=== PATIENT | female | born 1965 | race Caucasian/White ===

== ENCOUNTER 2018-11-14 11:40 | Emergency (ER) | payer BC ==
--- OUTSIDE RECORDS SUMMARY | 2018-11-14 12:13 | XMS REPORT ---
:1965 Author Organization [facility] Address [address] [place] [address] Care Team Providers Name Role Phone Joceline Batista Unavailable Unavailable PROBLEMS Type Condition ICD9-CM OSJ11-[id number] Onset Condition SNOMED Code Code Code Dates Status Problem Postmenopausal N95.0 Active 44930281 bleeding Problem Body mass index Z68.36 Active 835109058035085 (BMI) 36.0-36.9, adult ALLERGIES Substance Reaction Event Type Date Status ragweed pollen allergen extract Unknown Drug Allergy Oct, Active Dust Unknown Drug Allergy Oct, Active ENCOUNTERS Encounter Location Date Diagnosis [address] Nov[facility] [address] [place] [id number] [facility] Oct, Encounter for other OBGYN [facility], specified surgical [place] [id number] aftercare Z48.[address] 13 Oct, 2018 Postmenopausal bleeding [facility] [address] [place] [address], N95.0 ; Body mass index [place] 48[address] (BMI) 36.0-36.9, adult Z68.36 and Hematuria, unspecified R31.9 [facility] 103 Sep, Hypokalemia E87.6 [place] [id number] [facility] 103 Sep, OBGYN [place] [id number] [facility] [address], Sep, Postmenopausal bleeding [facility] [place] [id number] N95.0 and Body mass index (BMI) 36.0-36.9, adult Z68.36 [facility] 103 Sep, Postmenopausal bleeding OBGYN [facility], N95.0 and Body mass index [place] [address] (BMI) 36.0-36.9, adult Z68.36 [facility] [address], Sep, Postmenopausal bleeding [facility] [place] [id number] N95.0 and Body mass index (BMI) 36.0-36.9, adult Z68.36 [facility] 103 Aug, Postmenopausal bleeding OBGYN [facility], N95.0 and Body mass index [place] [address] (BMI) 36.0-36.9, adult Z68.36 [facility] 103 Aug, OBGYN [place] [id number] [facility] 103 Aug, OBGYN [place] [id number] [facility] 103 Aug, [place] [id number] [facility] 103 Aug, OBGYN [place] [id number] [facility] 103 Aug, Postmenopausal bleeding OBGYN [facility], N95.0 and Body mass index [place] [address] (BMI) 36.0-36.9, adult Z68.36 [facility] [address] [place] [address] Jul, Postmenopausal bleeding OBGYN [address] [place], N95.0 [place] [id number] [facility] 103 Jul, Postmenopausal bleeding OBGYN [facility] N95.0 [place] [id number] [facility] 103 Jul, Postmenopausal bleeding OBGYN [facility]95.0 [place] [id number] [address] Jul, Postmenopausal bleeding OBGYN [address] [place], N95.0 and Body mass index [place] [address] (BMI) 36.0-36.9, adult Z68.36 IMMUNIZATIONS No Known Immunizations SOCIAL HISTORY Never Assessed REASON FOR REFERRAL FUNCTIONAL STATUS PLAN OF CARE Activity Details Follow Up As scheduled Reason: VITAL SIGNS Height 68 in 2018-10-20 Weight 235 lbs 2018-10-20 BMI 35.73 kg/m2 2018-10-20 Blood pressure systolic 126 mm Hg 2018-10-20 Blood pressure diastolic 78 mm Hg 2018-10-20 MEDICATIONS Unknown Medications PROCEDURES No Known procedures RESULTS No Results REASON FOR VISIT "Piece" came out of vagina after hysterectomy- pt concerned , pain in back of legs and side of neck, father of stroke recently Insurance Providers [facility] Health Member Patient Patient Patient Patient Patient Subscriber Subscriber Subscriber Group Insurance Plan Plan Plan Plan ID Relationship Address Phone Name Date of ID Name Date of No Type Insurance Insurance Insurance Coverage to Subscriber Address Phone Name Dates [employer] [phone] [employer] self Joceline [id number] Blue [id number] 89 Blue Balaji 0 Cross/Blue [place] Cross/Blue Shield [id number] Shield MEDICAL (GENERAL) HISTORY Type Description Date Medical History Hypothyroidsm Medical History Obstructive sleep apnea Medical History Diverticulosis of sigmoid colon Medical History HTN Medical History Hyperlipidemia Surgical History Surgical History hysteroscopy, D&C, excision of EM mass 09/07/18 Surgical History TLH/BS/cysto 09/28/18 Hospitalization History .
--- NOTE | 2018-11-14 12:27 | ED ---
Back Pain - HPI Summary HPI Summary: A 53 y/o female presents to the ED c/o back pain reaching 6/10 in severity. In the ED room, the patient has a pulse of 86 BPM, O2 saturation of 98%, and blood pressure of 178/91. As per triage, "pt states back pain since a partial hysterectomy, states recently developed some heartburn, and then Thursday behind the right shoulder blade pain that was severe. pt also states that feels like whole body is burning, torso feels burning. pt denies gas feeling, recent weight loss, feet hurt and hurts to sit". According to the patient, her back pain (in shoulder blades) started back in July but it was not severe enough to follow up. This pain was coupled with post-menopausal bleeding and she saw her OB. She also had acid-reflux symptoms, so her MD prescribed her some medication. She noted that after her hysterectomy, she felt "pain in my organs" and also felt like she has a hernia. She comes to the ED today because she experienced severe back pain (beneath right shoulder) on Thursday, but subsided, however, she experiences mild back pain now with some tenderness. 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 She also looked at her tongue last night and noticed her tongue was white. Yogurt alleviates her pain, however, ETOH and apples aggravate the sharp back pain. - History of Current Complaint Chief Complaint: EDGeneral Stated Complaint: BACK PAIN Time Seen by Provider: 11/14/18 11:50 Hx Obtained From: Patient Onset/Duration: Sudden Onset, Lasting Days, Still Present Onset/Duration: Started Days Ago, Still Present Timing: Constant Back Pain Location: Is Discrete @ - RIGHT SHOULDER BLADE Severity Initially: Moderate Severity Currently: Moderate Pain Intensity: 6 Pain Scale Used: 0-10 Numeric Character: Sharp Aggravating Symptom(s): Other - ETOH AND APPLES Alleviating Symptom(s): Other - YOGURT Associated Signs And Symptoms: Positive: Negative - Allergies/Home Medications Allergies/Adverse Reactions: Allergies Allergy/AdvReac Type Severity Reaction Status Date / Time No Known Allergies Allergy Verified 11/14/18 11:48 Home Medications: Home Medications Atorvastatin* [Lipitor*] 40 mg PO 1700 11/14/18 [History Confirmed 11/14/18] Citalopram Hydrobromide [Citalopram HBr] 20 mg PO DAILY 11/14/18 [History Confirmed 11/14/18] Levothyroxine TAB* [Synthroid TAB*] 50 mcg PO DAILY 11/14/18 [History Confirmed 11/14/18] Omeprazole 40 mg PO DAILY 11/14/18 [History Confirmed 11/14/18] Triamcinolone 0.1% Cr 15gm -NF [Triamcinolone Acetonide] 1 applic TOPICAL BID [History Confirmed 11/14/18] PMH/Surg Hx/FS Hx/Imm Hx Endocrine/Hematology History: Denies: Hx Diabetes Cardiovascular History: Reports: Hx Hypertension Respiratory History: Denies: Hx Asthma - Surgical History Surgery Procedure, Year, and Place: HYSTERECTOMY Infectious Disease History: No Infectious Disease History: Denies: Traveled Outside the [place] in Last 30 Days - Family History Known Family History: Positive: Diabetes - TYPE II - Social History Alcohol Use: None Substance Use Type: Reports: None Smoking Status (MU): Never Smoked Tobacco Review of Systems Positive: Other - POSITIVE: FELT WARM ON TORSO. Negative: Fever ENT: Other - POSITIVE: WHITE TONGUE Positive: Other - POSITIVE: BACK PAIN All Other Systems Reviewed And Are Negative: Yes Physical Exam - Summary Physical Exam Summary: Appearance: The patient is well-nourished in no acute distress and in no acute pain. Skin: The skin is warm and dry and skin color reflects adequate perfusion. HEENT: The head is normocephalic and atraumatic. The pupils are equal and reactive. The conjunctivae are clear and without drainage. Nares are patent and without drainage. Mouth reveals moist mucous membranes and the throat is without erythema and exudate. The external ears are intact. The ear canals are patent and without drainage. The tympanic membranes are intact. Neck: The neck is supple with full range of motion and non-tender. There are no carotid bruits. There is no neck vein distension. Respiratory: Chest is non-tender. Lungs are clear to auscultation and breath sounds are symmetrical and equal. Cardiovascular: Heart is regular rate and rhythm. There is no murmur or rub auscultated. There is no peripheral edema and pulses are symmetrical and equal. Abdomen: The abdomen is soft and non-tender. There are normal bowel sounds heard in all four quadrants and there is no organomegaly palpated. Musculoskeletal: Extremities are non-tender with full range of motion. There is good capillary refill. There is no peripheral edema or calf tenderness elicited. Tenderness in right rhombial area. Neurological: Patient is alert and oriented to person, place and time. The patient has symmetrical motor strength in all four extremities. Cranial nerves are grossly intact. Deep tendon reflexes are symmetrical and equal in all four extremities. Psychiatric: The patient has an appropriate affect and does not exhibit any anxiety or depression. Triage Information Reviewed: Yes Vital Signs On Initial Exam: Initial Vitals Temp Pulse Resp BP Pulse Ox 99.0 F 79 16 166/101 97 11/14/18 11:44 11/14/18 11:44 11/14/18 11:44 11/14/18 11:44 11/14/18 11:44 Vital Signs Reviewed: Yes Diagnostics - Vital Signs Vital Signs Temp Pulse Resp BP Pulse Ox 11/14/18 11:44 99.0 F 79 16 166/101 97 - Laboratory Result Diagrams: 11/14/18 11:30 11/14/18 11:30 Lab Statement: Any lab studies that have been ordered have been reviewed, and results considered in the medical decision making process. - Radiology CXR Radiology Interpretation Completed By: Radiologist Summary of Radiographic Findings: No acute cardiopulmonary process. ED PHYSICIAN REVIEWED THIS RADIOLOGY REPORT. Back Pain Course/Dx - Course Course Of Treatment: Ms. Carpio presented with a somewhat confusing story. The most salient feature was some severe pain in her right shoulder posteriorly on Thursday with continued mild pain especially with movement. She also had exacerbation of her shoulder pain when she was eating. Her abdomen was soft and nontender, she was nontoxic in appearance and her vitals were stable. Labs were unremarkable for any suggestion of gallbladder issues. She was tender in the rhomboid area on the right. I'm not sure how the eating ties in with her presentation but recommended that we treat her symptomatically and get her close follow-up. - Diagnoses Provider Diagnoses: Back pain Discharge - Sign-Out/Discharge Documenting (check all that apply): Patient Departure - DISCHARGE - Discharge Plan Condition: Stable Disposition: HOME Patient Education Materials: Back Pain (ED) Referrals: Monica Mera NP [Primary Care Provider] - 3 Days Additional Instructions: FOLLOW UP WITH PRIMARY CARE PROVIDER. RETURN TO ED FOR ANY NEW OR WORSENING SYMPTOMS. - Billing Disposition and Condition Condition: STABLE Disposition: Home - Attestation Statements Document Initiated by Vernonibtessa: Yes Documenting Scribe: Roberto Ferraro Provider For Whom Timbo is Documenting (Include Credential): Rob Soriano MD Scribe Attestation: Roberto Lund, scribed for Rob Soriano MD on 11/14/18 at 2128. Scribe Documentation Reviewed: Yes Provider Attestation: The documentation as recorded by the Roberto rivas accurately reflects the service I personally performed and the decisions made by me, Rob Soriano MD Status of Scribe Document: Viewed
[2018-11-14 12:42] LABS: ABS Basophils 0 10^3/ul (0-0.2); ABS Eosinophils 0 10^3/ul (0-0.6); ABS Lymphocytes 2.2 10^3/ul (1.0-4.8); ABS Neutrophils 7.4 10^3/ul (1.5-7.7); ABS Nucleated RBC 0 10^3/ul; Eosinophil % 0.2 %; Hematocrit 43 % (35-47); Hemoglobin 14.6 g/dl (12.0-16.0); Mean Corpuscular HGB Conc 34 g/dl (31-36); Mean Corpuscular Hemoglobin 30 pg (27-31); Mean Corpuscular Volume 89 fL (80-97); Mean Platelet Volume 8.7 fL (7.4-10.4); Nucleated Red Blood Cells % 0; Platelet Count 294 10^3/ul (150-450); Red Blood Count 4.86 10^6/ul (4.00-5.40); Red Cell Distribution Width 13 % (10.5-15); White Blood Count 10.7 10^3/ul (3.5-10.8)
[2018-11-14 12:52] LABS: ALT 18 U/L (7-52); AST 17 U/L (13-39); Albumin 4.5 g/dL (3.2-5.2); Albumin/Globulin Ratio 1.4 (1-3); Alkaline Phosphatase 66 U/L (34-104); Anion Gap 11 mmol/L (2-11); BUN/Creatinine Ratio 16.4 (8-20); Blood Urea Nitrogen 12 mg/dL (6-24); C Reactive Protein < 1.00 mg/L (<8.01); CO2 Carbon Dioxide 30 mmol/L (22-32); Calcium 10.3 mg/dL (8.6-10.3); Chloride 98 mmol/L (101-111); EGFR Non-African American 82.8 (>60); Globulin 3.3 g/dL (2-4); Glucose 124 mg/dL (70-100); Potassium 3.1 mmol/L (3.5-5.0); Sodium 139 mmol/L (135-145); Total Protein 7.8 g/dL (6.4-8.9)
[2018-11-14 14:55] VITALS: BP 152/99
== END 2018-11-14 14:55 | disposition home or self-care (01) ==
LOC: ED 11:40
DX: M54.9 Dorsalgia, unspecified (principal); I10 Essential (primary) hypertension
CPT/HCPCS: 36415; 71046; 80053; 84484; 85025; 86140; 99283